=== PATIENT | male | born 1950 | race Caucasian/White ===

== ENCOUNTER → 2023-11-08 14:00 | Outpatient (REF) | payer MEDICARE, SELFPAY | LOC: RAD 14:00 | PROVIDERS: ATTENDING PHYSICIAN Orthopaedic Surgery; FAMILY PHYSICIAN Nurse Practitioner Adult Health | DX: M25.512 Pain in left shoulder (principal) | CPT/HCPCS: 23350; 73040; 73200 ==

== ENCOUNTER 2023-12-01 18:21 | Observation (INO) | payer MEDICARE, SELFPAY ==
[2023-12-01] VITALS (8 sets, daily range): BP systolic 140–181; BP diastolic 94–111; PULSE 80; BMI 30.6
[2023-12-01 15:42] LABS: % Basophils 0.9 % (0-2); % Eosinophils 2.9 % (0-6); % Immature Granulocytes 0.1 % (0-0.5); % Lymphocytes 26.1 % (20.5-51.1); % Monocytes 12.2 % (1.7-9.3); % Neutrophils 57.8 % (42.2-75.2); Absolute Basophils 0.1 10^3/uL (0-0.2); Absolute Eosinophils 0.2 10^3/uL (0-0.7); Absolute Lymphocytes 1.8 10^3/uL (1.2-3.4); Absolute Monocytes 0.8 10^3/uL (0.1-0.6); Absolute Neutrophils 3.9 10^3/uL (1.4-6.5); Hematocrit 36.5 % (39.0-52.0); Hemoglobin 12.6 g/dL (13.0-18.0); Mean Corp Hgb Conc. 34.5 g/dL (33.0-37.0); Mean Corpuscular Hgb 30.7 pg (27.0-31.0); Mean Corpuscular Volume 88.8 fL (80.0-94.0); Mean Platelet Volume 9.7 fL (7.4-10.4); Nucleated Red Blood Cells % 0 % (-); Platelet Count 252 10^3/uL (130-400); Red Blood Cell Count 4.11 10^6/uL (4.70-6.10); Red Cell Dist. Width 13.4 % (11.5-14.5); White Blood Cell Count 6.8 10^3/uL (4.8-10.8)
--- NOTE | 2023-12-01 15:49 | CON.NEURO4 ---
Consultation - Neurology 4
-
CONSULTING PHYSICIAN: Rahul Renteria
REFERRING PHYSICIAN: ER
DICTATED BY: Rahul Renteria
DATE/TIME OF REQUEST: 12/01/23
DATE/TIME OF CONSULTATION: 12/01/23
Reason for Consultation: Sudden onset dizziness, nausea, left arm and neck pain
History of Present Illness:
Patient is a 73 year old man with history of hypertension, COPD, renal mass s/p nephrectomy, GERD, anxiety/depression, ischemic stroke, migraine with complex aura presenting to hospital with acute onset of dizziness, nausea, left arm and neck pain
beginning at around 1030-11 AM today. Patient woke up this morning feeling okay. Symptoms did seem to start suddenly. He feels like he is floating and noted some leaning to the right side. He has been compliant with aspirin. No significant
headache. Has not had the left neck and arm pain before.
Past Medical History: Ischemic stroke in 2015 associated with left-sided weakness and dysarthria/dysphagia no residual deficits, Hypertension, GERD, anxiety/depression, COPD, renal mass s/p nephrectomy, he had event in December 2021 of severe
headache with right sided weakness with negative workup felt to be migraine with motor aura
Surgical History: Left nephrectomy, TURP, hernia repair, finger laceration repair
Family History: Reviewed and non-contributory
Social History: , retired from army, former tobacco use quit at age 31 about 15 pack years, no significant alcohol
Review of Symptoms:
Patient denies any fever, headache, chest pain, shortness of breath, GI or symptoms.
Physical Exam:
Elderly man no acute distress, no head or neck trauma, eyes clear, oropharynx clear, heart rate regular, breathing unlabored, abdomen soft non tender, no lower extremity edema or rash. Good pulses bilaterally, good capillary refill. Neck no pain or
tenderness lissette maneuver negative.
Neurologic Examination:
Mental Status: Patient awake and alert, no neglect, oriented fully, no aphasia, obeys complex commands
Cranial Nerves: Pupils 3mm equal round and reactive, left eye has esotropia and strabismus, EOM are full no pathologic nystagmus seen, smile symmetric, no dysarthria, no ptosis, V1-V3 normal to light touch
Motor: Normal bulk and tone no pronator drift, full 5/5 shoulder abduction and hip flexion
Sensory: No sensory negelct
Reflexes: Trace throughout, no clonus, babinski negative
Coordination: Normal finger to nose and heel elam maneuver
Gait: Milldy wide based, unsteady, no rebeca ataxia, a bit of leaning to right side
Neuro Imaging: CT head non contrast no acute infarcts seen, no hemorrhage, no hyperdense vessel signs
Impressions
1. Sudden onset of dizziness, left neck and arm pain, gait abnormalities. Possibly a cerebellar localization, left neck and arm pain a bit atypical for stroke, prudent to evaluate for carotid or vertebral dissection. Cervical radiculopathy
could explain arm and neck pain but not gait issues or dizziness. History of ischemic stroke. History of complex migraine with motor aura.
2.
3.
4.
Patient has the following risk factors for their symptoms: Hypertension, previous ischemic stroke, migraine
IV Tenecteplase/IAT candidacy: Outside time window for TNK, no large vessel occlusion seen on CTA would not be IAT candidate
Recommendations:
1. Follow up CTA head and neck
2. NIH and neurologic checks
3. Continue aspirin 81 mg daily, add clopidogrel 300 mg for DAPT therapy
4. Permissive hypertension less than 220/120 until tomorrow at 1100 AM
5. Non urgent brain MRI without contrast
6. Check EKG, troponins
Will follow
Discussed patient care with: Patient, Dr Maddox
[2023-12-01 15:53] LABS: INR 1.13; PT 14.4 Sec (11.4-14.6)
[2023-12-01 15:55] LABS: ALT (SGPT) 17 U/L (0-50); AST (SGOT) 28 U/L (17-59); Albumin 4.7 g/dl (3.5-5.0); Alkaline Phosphatase 93 U/L (38-126); Blood Urea Nitrogen 23 mg/dl (9-20); Calcium 9.9 mg/dl (8.4-10.2); Carbon Dioxide 29 mmol/L (22-30); Chloride 100 mmol/L (98-107); Glucose 109 mg/dl (70-99); Potassium 4.5 mmol/L (3.5-5.1); Sodium 136 mmol/L (135-145); Total Bilirubin 0.5 mg/dl (0.2-1.3); Total Protein 7.8 g/dl (6.3-8.2); eGFR > 60.00
[2023-12-01 16:07] LABS: Troponin I < 0.012 ng/ml
[2023-12-01] MEDS: PLAVIX 300 MG PO (16:46)
[2023-12-01] MEDS: ASPIRIN 325 MG PO (16:46)
--- NOTE | 2023-12-01 16:50 | ED.GENMED ---
History of Present Illness
<Karey Bahena PA-C - Last Filed: 12/01/23 17:00>
General
Chief Complaint: Dizziness
Source: patient
Time Seen by Provider: 12/01/23 15:42
History of Present Illness
History of Present Illness:
73yoM with a history of prior CVA, coronary artery disease, hypertension, hyperlipidemia, and COPD presenting for evaluation of dizziness. Patient reports an abrupt onset of symptoms around 10:30-11am this morning. He reports nausea, feeling
flushed, dizzy, with associated L neck and upper arm discomfort. He states it 'feels like he is floating.' Patient reports that he was leaning to his right side and fell into the wall. He also reports feeling his heart race intermittently over the
past several days. He denies any chest pain, shortness of breath, visual changes, headache.
If applicable-neuro sx onset
Onset of symptoms known: Yes
Date of onset of symptoms: 12/01/23
Time pt last seen normal is known: Yes
Date last time pt seen normal: 12/01/23
Time last time pt seen normal: 10:30
Past History
<Karey Bahena PA-C - Last Filed: 12/01/23 17:00>
Past History
ED Past Medical History: GERD, HTN, Hypercholesterolemia and Other (kidney stone)
ED Past Surgical History: Orthopedic and Other (Hernia/eye surgery)
Social History
Tobacco: Former smoker
Alcohol: None
Drug: None
Personal:
Living: with family
Employment: Employed (contractor)
Phy Exam
<Karey Bahena PA-C - Last Filed: 12/01/23 17:00>
General Physical Exam
General Presentation: well appearing and no apparent distress
General age: appears stated age
General Skin: warm and dry
General Habitus: normal
General Mental: alert
Cardiovascular Exam
Cardiovascular Exam: regular rate/rhythm, no edema, no murmur and normal peripheral pulses (2+ radial pulses bilaterally)
Pulmonary Exam
Pulmonary Exam: lungs clear, no respiratory distress and no crackles
Neurological Exam
Neurological Exam: other (Strabismus noted to L eye which is chronic. PERRL. CN 2-12 grossly intact. 5/5 strength and sensation intact in all extremities. No ataxia with finger to nose and heel to elam. Gait is wide based.)
NIH Stroke Score
Level of Consciousness: 0 - Alert
LOC questions: 0-Answers both correctly
LOC Commands: 0-Performs both correctly
Best Gaze: 0-Normal
Visual Patiño: 0=Normal, no visual loss
Facial palsy: 0=Normal, symmetrical
Motor - Right Arm: 0=No drift 10 seconds
Motor - Left Arm: 0=No drift 10 seconds
Motor - Right Le-No drift 5 seconds
Motor - Left Le-No drift 5 seconds
Limb Ataxia: 0-Absent
Sensation: 0-Normal
Best Language: 0-No aphasia
Dysarthria: 0-Normal
Extinction and Inattention: 0-No abnormality
Total Score:: 0
[place] Coma Scale
Eye Opening: Spontaneous
Verbal Response: Oriented
Motor Response: Obeys Commands
GCS Total Score: 15
Skin Exam
Skin Exam: normal color and warm/dry
<Dominick Maddox MD - Last Filed: 12/01/23 17:04>
NIH Stroke Score
Total Score:: 0
[place] Coma Scale
GCS Total Score: 15
Course
<Karey Bahena PA-C - Last Filed: 12/01/23 17:00>
Orders/Labs/Results
Orders:
Orders
12/01/23 15:26
Electrocardiogram (*1) Urgent
Reason for Study: Chest Pain
EKG- Treatment ONCE
12/01/23 15:28
CT Head W/o Cont STROKE ALERT Urgent
Reason For Exam: dizziness, gait dysfunction starting 11am
12/01/23 15:34
Complete Blood Count/With Diff Urgent
Comprehensive Metabolic Panel Urgent
Prothrombin Time Urgent
Troponin I Urgent
12/01/23 15:48
CT Head/Neck Ang STROKE ALERT Stat
Comment:
Reason For Exam: Dissection?
12/01/23 16:33
Aspirin 325 mg PO NOW STA
Clopidogrel Bisulfate [Plavix] 300 mg PO NOW STA
12/01/23 16:49
Urinalysis Reflex To Culture Urgent
Date Specimen was Collected: 12/01/23
Time Specimen was Collected: 16:48
Urine Microscopic Reflex Cult Urgent
Abnormal Lab Results
12/01/23 12/01/23
15:34 16:49
RBC 4.11 L 10^6/uL
(4.70-6.10)
Hgb 12.6 L g/dL
(13.0-18.0)
Hct 36.5 L %
(39.0-52.0)
Absolute Monos (auto) 0.8 H 10^3/uL
(0.1-0.6)
Monocytes % 12.2 H %
(1.7-9.3)
BUN 23 H mg/dl
(9-20)
Glucose 109 H mg/dl
(70-99)
Ur Occult Blood Reflex Trace A
(Negative)
12/01/23 15:34
12/01/23 15:34
Vital Signs
Initial and Last Documented VS:
Initial Vital Signs
Temp Pulse Resp BP Pulse Ox
99.1 F 100 18 166/111 97
12/01/23 15:22 12/01/23 15:22 12/01/23 15:22 12/01/23 15:22 12/01/23 15:22
Last Documented Vital Signs
Temp Pulse Resp BP Pulse Ox
99.1 F 86 12 168/102 96
12/01/23 15:22 12/01/23 16:30 12/01/23 16:30 12/01/23 16:46 12/01/23 16:30
<Dominick Maddox MD - Last Filed: 12/01/23 17:04>
Orders/Labs/Results
Orders:
Orders
12/01/23 15:26
Electrocardiogram (*1) Urgent
Reason for Study: Chest Pain
EKG- Treatment ONCE
12/01/23 15:28
CT Head W/o Cont STROKE ALERT Urgent
Reason For Exam: dizziness, gait dysfunction starting 11am
12/01/23 15:34
Complete Blood Count/With Diff Urgent
Comprehensive Metabolic Panel Urgent
Prothrombin Time Urgent
Troponin I Urgent
12/01/23 15:48
CT Head/Neck Ang STROKE ALERT Stat
Comment:
Reason For Exam: Dissection?
12/01/23 16:33
Aspirin 325 mg PO NOW STA
Clopidogrel Bisulfate [Plavix] 300 mg PO NOW STA
12/01/23 16:49
Urinalysis Reflex To Culture Urgent
Date Specimen was Collected: 12/01/23
Time Specimen was Collected: 16:48
Urine Microscopic Reflex Cult Urgent
Abnormal Lab Results
12/01/23 12/01/23
15:34 16:49
RBC 4.11 L 10^6/uL
(4.70-6.10)
Hgb 12.6 L g/dL
(13.0-18.0)
Hct 36.5 L %
(39.0-52.0)
Absolute Monos (auto) 0.8 H 10^3/uL
(0.1-0.6)
Monocytes % 12.2 H %
(1.7-9.3)
BUN 23 H mg/dl
(9-20)
Glucose 109 H mg/dl
(70-99)
Ur Occult Blood Reflex Trace A
(Negative)
12/01/23 15:34
12/01/23 15:34
Vital Signs
Initial and Last Documented VS:
Initial Vital Signs
Temp Pulse Resp BP Pulse Ox
99.1 F 100 18 166/111 97
12/01/23 15:22 12/01/23 15:22 12/01/23 15:22 12/01/23 15:22 12/01/23 15:22
Last Documented Vital Signs
Temp Pulse Resp BP Pulse Ox
99.1 F 86 12 168/102 96
12/01/23 15:22 12/01/23 16:30 12/01/23 16:30 12/01/23 16:46 12/01/23 16:30
<Karey Bahena PA-C - Last Filed: 12/01/23 17:00>
MDM/Problems Addressed
Differential Diagnosis Includes:
73yoM here with an acute onset of dizziness, nausea, L arm/neck pain around 10:30-11am this morning. Associated with gait disturbance. Stroke alert called in triage and patient sent directly to CT. Neurology attending came to bedside an assessed
patient. L eye strabismus noted which is chronic. Gait is wide based. No other obvious deficits noted on neuro exam. NIHSS 0. Differential diagnosis includes but is not limited to: CVA, TIA, complex migraine, ACS, less likely aortic dissection as
pulses and BP are equal bilaterally
<Karey Bahena PA-C - Last Filed: 12/01/23 17:00>
*EKG
Interpreted by ED Provider?: Yes
EKG Intrepretation Date: 12/01/23
Heart Rate: 94
Rate: normal
Rhythm: sinus
Burton: left axis deviation
Interval: normal interval
QRS Pattern: normal QRS
Ischemia: no ischemia
*Critical Care Note
Total Time (30-74mins, 75-104mins- exclusive of procedures): Not Applicable
<Karey Bahena PA-C - Last Filed: 12/01/23 17:00>
Update Note
Update Note:
EKG shows NSR without ischemic changes and troponin is normal. CT head is negative for hemorrhage and no large vessel occlusion seen on CTA. Neurology recommending Plavix load and admission for MRI. He was admitted for further evaluation and
management.
ED Attending Note
<Karey Bahena PA-C - Last Filed: 12/01/23 17:00>
-
Portions of this chart may have been created with voice recognition software.� Occasional wrong word or��sound alike� substitutions may have occurred due to the inherent limitations of voice recognition software.
<Dominick Maddox MD - Last Filed: 12/01/23 17:04>
ED Attending Note
Patient seen and examined by attending physician: Yes
I performed the substantive portion of visit, reviewed & personally made and approve the management plan that is documented in note by myself or MATT.: Yes
ED Attending Note:
Patient with onset of some disequilibrium left upper posterior neck pain left arm pain and a foggy feeling around 11 AM this morning. Persistent throughout the day. No history of same.
Stroke alert was called at triage. Exam was done neurologically observing the neurologist. Patient has a left eye strabismus. Extraocular muscles intact otherwise. No facial droop. Speech normal. Gait is mildly wide-based. No drift.
Vmipsj-km-[id number] normal. Bbjc-lc-vpce normal. Light touch intact. No extinction.
CT head CTA negative. Cardiac testing stable. Discussed with neurology. Admit aspirin Plavix and MRI tomorrow
Discharge Plan
Departure
Patient Disposition: Admit
Date of Disposition: 12/01/23
Time of Disposition: 16:51
Presentation/result/management discussed w/ accepting MD/DO: Hospitalist
Discharge Problem:
Dizziness, Neck pain on left side
Prescriptions:
No Action
lansoprazole 30 MG capsule,delayed release(DR/EC)
30 mg PO BID
losartan 50 MG tablet
50 mg PO HS
atorvastatin 80 MG tablet
80 mg PO HS
venlafaxine [Effexor XR] 75 MG capsule,extended release 24hr
225 mg PO DAILY
albuterol sulfate 1 PUFF HFA aerosol inhaler
2 puff inhalation R Q4HPRN PRN (Reason: sob/wheezing)
cyclobenzaprine 10 mg Tablet
10 mg PO DAILYPRN PRN (Reason: muscle spasms)
melatonin 3 mg Tablet
9 mg PO HS
amlodipine 5 mg Tablet
5 mg PO HS
buspirone 15 mg Tablet
30 mg PO BID
aspirin 81 mg Tablet,Chewable
81 mg PO DAILY Qty: 30 0RF
cyanocobalamin (vitamin B-12) [Vitamin B-12] 1,000 mcg Tablet
1,000 mcg PO DAILY
oxycodone-acetaminophen 10-325 mg tablet
1 tab PO Q6HPRN PRN (Reason: moderate pain)
Patient Comments:
12/07/2023: last filled 11/21/23, 120 tabs for 30 days from [facility]
tadalafil 20 mg tablet
20 mg PO DAILYPRN PRN (Reason: ed)
Referrals:
Nusrat Medrano CRNP [Family Provider] -
Interventions
Interventions:
*Risk Screen - Suicide Last Done: 12/01/23 15:22
*General Assessment Last Done: 12/01/23 15:22
*Neglect/Abuse Screening Last Done: 12/01/23 15:22
*ED COVID-19 Vaccine History Last Done: 08/02/24 16:11
ED- Neurological Assessment Last Done: 12/01/23 16:11
ED Swallowing Screen Last Done: 12/01/23 16:11
Discharge Date and Time
Print Language: SPANISH
[2023-12-01 16:59] LABS: Urine Albumin Negative (Neg - Trace); Urine Bilirubin Negative (Negative); Urine Character Clear (Clear); Urine Color Yellow; Urine Glucose Negative (Negative); Urine Ketone Negative (Negative); Urine Leukocyte Negative (Negative); Urine Nitrite Negative (Negative); Urine Occult Blood Trace (Negative); Urine Specific Gravity 1.015 (<1.030); Urine Urobilinogen Negative (Neg - 1+)
[2023-12-01 17:19] LABS: Urine White Cell 0-2 /HPF (0-5)
--- NOTE | 2023-12-01 17:50 | HPS.HSE ---
Family Physician
-
Family Physician: JONATHAN Bob
Chief Complaint
-
dizziness
History of Present Illness
73-year-old male past medical history of CVA in 2018, migraine, COPD, hypertension, kidney stones status post left partial nephrectomy in 2022, hyperlipidemia, posttraumatic stress disorder, chronic severe lower back pain, anemia, presenting with
dizziness. He reports abrupt onset of symptoms around 10:30 AM's morning. He felt nauseous, feeling flushed, dizzy with associated left neck and left upper arm discomfort. He was leaning onto his right side and fell into the wall. He also felt
heart racing intermittently over the past several days. He denied any chest pain, shortness of breath, visual changes, headache.
Right now he complains of pain in his left neck and left upper arm. He has posterior headache. He denies any chest pain or shortness of breath. He states that he chronically leans onto his right side was told by a neurologist few years ago that
he may have had a migraine. He denies any history of heart disease.
He denies smoking. Drinks alcohol occasionally. He denies marijuana or any drugs.
Medical History
Past Medical History
Past Medical History: Reports Other (CVA in 2018, migraine, COPD, hypertension, kidney stones status post left partial nephrectomy in 2022, hyperlipidemia, posttraumatic stress disorder, chronic severe lower back pain, anemia,)
Past Surgical History: Reports Other ( Orthopedic and Other (Hernia/eye surgery))
Social History
Tobacco: Non-smoker
Alcohol: Occasional
Drug: None
Family History
Family History: Not pertinent
Allergies / Home Medications
Allergies reflects when Allergies were last updated in [employer].
Home Medications with original date entered in [employer]
Allergy/Medication List:
Allergies
Allergy/AdvReac Type Severity Reaction Status Date / Time
Penicillins Allergy Hives/throat Verified 10/21/22 15:41
restriction
@age 13
Home Medications
albuterol sulfate 90 mcg/actuation aerosol inhaler 2 puff inhalation R Q4HPRN PRN sob/wheezing 10/19/20
atorvastatin 80 mg tablet 80 mg PO HS High cholesterol 10/19/20
lansoprazole 30 mg capsule,delayed release 30 mg PO BID Gastrointestinal issue 10/19/20
losartan 50 mg tablet 50 mg PO HS Blood pressure 10/19/20
venlafaxine 75 mg capsule,extended release 24 hr (Effexor XR) 225 mg PO DAILY Depression 10/19/20
amlodipine 5 mg tablet 5 mg PO HS 01/17/22
buspirone 15 mg tablet 30 mg PO BID 01/17/22
cyclobenzaprine 10 mg tablet 10 mg PO DAILYPRN PRN muscle spasms 01/17/22
melatonin 3 mg tablet 9 mg PO HS 01/17/22
aspirin 81 mg chewable tablet 81 mg PO DAILY Blood clot prevention/tx #30 tabs 01/19/22
cyanocobalamin (vitamin B-12) 1,000 mcg tablet (Vitamin B-12) 1,000 mcg PO DAILY 10/21/22
oxycodone-acetaminophen 10 mg-325 mg tablet 1 tab PO Q6HPRN PRN moderate pain 10/21/22
tadalafil 20 mg tablet 20 mg PO DAILYPRN PRN ed 10/21/22
Review of Systems
-
History Source: Patient
A 12 point ROS was completed and negative except as noted: Yes
Constitutional: Reports No Symptoms
EENT: Reports No Symptoms
Respiratory: Reports No Symptoms
Cardiac: Reports No Symptoms
Abdomen/GI: Reports No Symptoms
: Reports No Symptoms
Musculoskeletal: Reports No Symptoms
Skin: Reports No Symptoms
Neurological: Reports See HPI
Endocrine: Reports No Symptoms
Hematologic/Lymphatic: Reports No Symptoms
Psych: Reports No Symptoms
Physical Exam
Vital Signs
Vital Signs
Temp Pulse Resp BP Pulse Ox
99.1 F 86 16 168/102 96
12/01/23 15:22 12/01/23 16:30 12/01/23 17:00 12/01/23 16:46 12/01/23 16:30
Physical Exam
General: Well Developed, Well Nourished and No Apparent Distress
HEENT: NormoCephalic, Moist mucous membranes and Atraumatic
Respiratory: Clear
Cardiac: S1/S2 and Regular Rhythm; No Murmur or Rub
GI: Soft, Non Tender, Non Distended and Normal Bowel Sounds; No Organomegaly
Rectal: Deferred by Provider
Musculoskeletal: No Clubbing, No Cyanosis and No Edema
Skin: No Rash
Neuro: Nonfocal/grossly intact
Laboratory Results
-
12/01/23 15:34
12/01/23 15:34
Laboratory Results
PT 14.4 Sec (11.4-14.6) 12/01/23 15:34
INR 1.13 12/01/23 15:34
Total Bilirubin 0.5 mg/dl (0.2-1.3) 12/01/23 15:34
AST 28 U/L (17-59) 12/01/23 15:34
ALT 17 U/L (0-50) 12/01/23 15:34
Alkaline Phosphatase 93 U/L (38-126) 12/01/23 15:34
Troponin I < 0.012 ng/ml 12/01/23 15:34
Data Reviewed
-
Lab Data: Labs Reviewed by me
Old Records: Reviewed
Impression/Plan
-
IMPRESSION:
PLAN:
# Dizziness/left arm and neck pain suspicious for ACS versus CVA versus cervical stenosis
# History of prior CVA
-CTA head and neck shows no acute pathology, less than 50% proximal right internal carotid stenosis which is progressed
-No evidence of vertebral artery dissection
-Continue aspirin, add Plavix
-Permissive hypertension to 220
-Neurochecks/NIH checks
-MRI brain without contrast
-EKG normal sinus rhythm, troponin negative, continue to trend
-Neurology following
# Incidental soft tissue filling of the left piriform sinus
-Stable from prior imaging
History of migraine
COPD
-Continue albuterol
Essential hypertension
-Continue amlodipine, losartan
Kidney stone status post left partial nephrectomy
Hyperlipidemia
PTSD
-Continue buspirone, venlafaxine
Chronic severe lower back pain
-Continue cyclobenzaprine, Percocet
History of cervical fusion
History of anemia
-Improved
Full code
DVT prophylaxis�SCDs
Regular diet
[2023-12-01 19:56] LABS: Troponin I < 0.012 ng/ml
[2023-12-01] MEDS: PROTONIX 40 MG PO (20:37)
--- NOTE | 2023-12-01 20:45 | PTCARENOTE ---
Receive pt from ER. Pt alert oriented X3, calm and pleasant. Pt assisted X1 to his bed. Pt oriented to the room, call hoang within reach. Pt complains about dizziness when turning his head. Pt states that he feels like 'things are floating', but the
room is not spinning. Pt also complains about left neck pain (4/10) and chronic lower back pain (5/10). Pt denies chest pain, SOB. Pt NIH=0, stroke pocket given. VSS (T=97.8, HR=84, RR=18, XG=992/97, SpO2=94% on RA). Pt on NSR on telemonitor. Will
monitor the pt
[2023-12-01] MEDS: BUSPAR 30 MG PO (22:33)
[2023-12-01] MEDS: MELATONIN 9 MG PO (22:34)
[2023-12-01] MEDS: NORVASC 5 MG PO (22:34)
[2023-12-01] MEDS: LIPITOR 80 MG PO (22:34)
[2023-12-01] MEDS: ROXICODONE 10 MG PO (22:35)
[2023-12-01] MEDS: COZAAR 50 MG PO (22:35)
--- NOTE | 2023-12-01 23:06 | W.PN.UPDATE ---
Update Note
Progress Note Update
Per RN, patient passed swallow screen, will place on Regular diet.
[2023-12-02] VITALS (8 sets, daily range): BP systolic 106–146; BP diastolic 65–87; PULSE 81
[2023-12-02] MEDS: VITAMIN B-12 1000 MCG PO (08:37)
[2023-12-02] MEDS: EFFEXOR XR 225 MG PO (08:37)
[2023-12-02] MEDS: PLAVIX 75 MG PO (08:37)
[2023-12-02] MEDS: PROTONIX 40 MG PO ×2 (08:37→20:48)
[2023-12-02] MEDS: LOW STRENGTH ASPIRIN 81 MG PO (08:37)
[2023-12-02] MEDS: BUSPAR 30 MG PO ×2 (08:37→20:48)
--- NOTE | 2023-12-02 08:42 | W.PN.NEURO.1 ---
Today's Communication / Plan
-
Continue aspirin 81 mg daily, added clopidogrel 300 mg for DAPT therapy, after 21 days, then clopidogrel alone as permanent aspirin replacement
Permissive hypertension less than 220/120 until today at 1100 AM, then normal pressure
Continue patient's usual atorvastatin 80 mg daily
Neuro Assessment/Plan
Assessment
Neuro Imaging: CT head non contrast no acute infarcts seen, no hemorrhage, no hyperdense vessel signs
Impressions
Sudden onset of dizziness, left neck and arm pain, gait abnormalities. History of ischemic stroke. History of complex migraine with motor aura.
Possibly a cerebellar localization for acute ischemic stroke, left neck and arm pain a bit atypical for stroke
Cervical radiculopathy could explain arm and neck pain but not gait issues or dizziness.
MRI of brain fails to demonstrate a new acute ischemic stroke as the cause for symptomatology leaving more likely TIA.
Plan
Continue aspirin 81 mg daily, added clopidogrel 300 mg for DAPT therapy, after 21 days, then clopidogrel alone as permanent aspirin replacement
Permissive hypertension less than 220/120 until today at 1100 AM, then normal pressure
Continue patient's usual atorvastatin 80 mg daily
We will follow as outpatient.
Subjective/Objective
Subjective Data
Date of Service: December 02, 2023
Objective Data
Vital Signs
Temp Pulse Resp BP Pulse Ox
36.8 C 82 18 112/79 97
12/02/23 03:45 12/02/23 03:45 12/02/23 03:45 12/02/23 03:45 12/02/23 03:45
PT 14.4 Sec (11.4-14.6) 12/01/23 15:34
INR 1.13 12/01/23 15:34
Sodium 136 mmol/L (135-145) 12/01/23 15:34
Potassium 4.5 mmol/L (3.5-5.1) 12/01/23 15:34
BUN 23 mg/dl (9-20) H 12/01/23 15:34
Glucose 109 mg/dl (70-99) H 12/01/23 15:34
Calcium 9.9 mg/dl (8.4-10.2) 12/01/23 15:34
Patient Allergies
Penicillins Allergy (Verified 10/21/22 15:41)
Hives/throat restriction @age 13
Data Reviewed
-
CT-A: Report Reviewed
CT Head: Report Reviewed
MRI Head: Image Reviewed
Labs: Report Reviewed
Reviewed with: Physician
Old Records: Summarized
Past History
Past History
ED Past Medical History: CVA (Ischemic stroke 2016 with left-sided weakness), GERD, HTN, Hypercholesterolemia, Psychiatric (Generalized anxiety disorder/major depression), Other (Migraine with aura) and Other (kidney stone)
ED Past Surgical History: Orthopedic, Urological (Left nephrectomy, TURP) and Other (Hernia/eye surgery)
Social History
Tobacco: Former smoker
Alcohol: None
Drug: None
Personal:
Living: with family
Employment: Employed (contractor)
Family History
Family History: Other (Reviewed and noncontributory)
Medications
-
Medications:
Generic Name Dose Route Start Last Admin
Trade Name Freq PRN Reason Stop Dose Admin
Acetaminophen 325 mg 12/01/23 20:21
Acetaminophen 325 Mg Tablet PO 12/29/23 20:20
Q6HPRN PRN
MODERATE PAIN
Albuterol 2 puff 12/01/23 19:14
Albuterol Hfa [90 Mcg/Dose] Inhaler INH
R Q4HPRN PRN
sob/wheezing
Protocol
Amlodipine Besylate 5 mg 12/01/23 22:00 12/01/23 22:34
Amlodipine 5 Mg Tablet PO 12/29/23 21:59 5 mg
HS DEVORAH Administration
Aspirin 81 mg 12/02/23 08:00
Aspirin 81 Mg Chewable Tablet PO 12/30/23 07:59
DAILY DEVORAH
Atorvastatin Calcium 80 mg 12/01/23 22:00 12/01/23 22:34
Atorvastatin (Lipitor) 80 Mg Tablet PO 12/29/23 21:59 80 mg
HS DEVORAH Administration
Buspirone HCl 30 mg 12/01/23 20:00 12/01/23 22:33
Buspirone 15 Mg Tablet PO 12/29/23 19:59 30 mg
BID DEVORAH Administration
Clopidogrel Bisulfate 75 mg 12/02/23 08:00
Clopidogrel 75 Mg Tablet PO 12/30/23 07:59
DAILY DEVORAH
Cyanocobalamin 1,000 mcg 12/02/23 08:00
Cyanocobalamin 1,000 Mcg Tablet PO 12/30/23 07:59
DAILY DEOVRAH
Cyclobenzaprine HCl 10 mg 12/01/23 19:14
Cyclobenzaprine 10 Mg Tablet PO 12/29/23 19:13
DAILYPRN PRN
muscle spasms
Losartan Potassium 50 mg 12/01/23 22:00 12/01/23 22:35
Losartan 50 Mg Tablet PO 12/29/23 21:59 50 mg
HS DEVORAH Administration
Melatonin 9 mg 12/01/23 22:00 12/01/23 22:34
Melatonin 3 Mg Tablet PO 12/29/23 21:59 9 mg
HS DEVORAH Administration
Oxycodone HCl 10 mg 12/01/23 20:15 12/01/23 22:35
Oxycodone 10 Mg Regular Release Tablet PO 12/15/23 20:14 10 mg
Q6HPRN PRN Administration
moderate pain
Pantoprazole Sodium 40 mg 12/01/23 20:00 12/01/23 20:37
Pantoprazole 40 Mg Delayed Release Tablet PO 12/29/23 19:59 40 mg
BID DEVORAH Administration
Venlafaxine HCl 225 mg 12/02/23 08:00
Venlafaxine 75 Mg Extended Release Capsule PO 12/30/23 07:59
DAILY DEVORAH
--- NOTE | 2023-12-02 08:51 | W.PN.HOSP.TC ---
Today's Communication/Plan
-
MRI of the brain.
Assessment / Plan
Assessment / Plan
Physical exam:
General: Well Developed, Well Nourished and No Apparent Distress
HEENT: Normocephalic, Atraumatic and Moist Mucous Membranes
Respiratory: Clear to Auscultation; Negative Wheezes, Rales or Rhonchi
Cardiac: Regular Rhythm and S1/S2
GI: Soft, Nontender and Nondistended
Musculoskeletal: No Clubbing, No Cyanosis and No Edema
Neuro: Awake, Alert and Oriented
Psych: Calm
A/P:
# Dizziness/left arm and neck pain suspicious for ACS versus CVA versus cervical stenosis
# History of prior CVA
-CTA head and neck shows no acute pathology, less than 50% proximal right internal carotid stenosis which is progressed
-No evidence of vertebral artery dissection
-Continue aspirin, add Plavix
-Permissive hypertension to 220
-Neurochecks/NIH checks
-MRI brain without contrast
-EKG normal sinus rhythm, troponin negative, continue to trend
-Neurology following
-Patient requests something for claustrophobia prior to MRI so ordered some Ativan.
# Incidental soft tissue filling of the left piriform sinus
-Stable from prior imaging
History of migraine
COPD
-Continue albuterol
Essential hypertension
-Continue amlodipine, losartan
Kidney stone status post left partial nephrectomy
Hyperlipidemia
PTSD
-Continue buspirone, venlafaxine
Chronic severe lower back pain
-Continue cyclobenzaprine, Percocet
History of cervical fusion
History of anemia
-Improved
Full code
DVT prophylaxis�SCDs
Regular diet
Anticipated Discharge: 24 - 48 hours
Subjective/Interval History
-
Date of Service: December 02, 2023
Patient feels better overall, still having some dizziness.
Objective Data
-
Labs:
Laboratory Results
12/02/23
07:55
WBC Pending
Hgb Pending
Hct Pending
Plt Count Pending
Sodium Pending
Potassium Pending
Chloride Pending
Carbon Dioxide Pending
BUN Pending
Creatinine Pending
Glucose Pending
Calcium Pending
Vital Signs:
Vital Signs
Temp Pulse Resp BP Pulse Ox
98.2 F 82 18 112/79 97
12/02/23 03:45 12/02/23 03:45 12/02/23 03:45 12/02/23 03:45 12/02/23 03:45
I&O
12/01/23 12/02/23 12/03/23
06:59 06:59 06:59
Intake Total 960 / 960
Output Total 700 / 700
Balance 260 / 260
[2023-12-02 08:59] LABS: Blood Urea Nitrogen 17 mg/dl (9-20); Calcium 9.6 mg/dl (8.4-10.2); Carbon Dioxide 28 mmol/L (22-30); Chloride 99 mmol/L (98-107); Estimated Creatinine Clearance 71 ml/min; Glucose 100 mg/dl (70-99); HDL Cholesterol 48 mg/dl; LDL Cholesterol, Calculated 81 mg/dl; Potassium 3.9 mmol/L (3.5-5.1); Sodium 135 mmol/L (135-145); Total Cholesterol 149 mg/dl (50-199); Triglyceride 104 mg/dl (10-149); Very Low Density Lipoprotein 20 mg/dl (0-30); eGFR > 60.00
[2023-12-02] MEDS: ProAIR HFA INHALER 2 PUFF INH (09:05)
[2023-12-02 09:20] LABS: Troponin I < 0.012 ng/ml
[2023-12-02 09:38] LABS: Hematocrit 34.1 % (39.0-52.0); Hemoglobin 11.8 g/dL (13.0-18.0); Mean Corp Hgb Conc. 34.6 g/dL (33.0-37.0); Mean Corpuscular Hgb 30.4 pg (27.0-31.0); Mean Corpuscular Volume 87.9 fL (80.0-94.0); Mean Platelet Volume 10.1 fL (7.4-10.4); Platelet Count 254 10^3/uL (130-400); Red Blood Cell Count 3.88 10^6/uL (4.70-6.10); Red Cell Dist. Width 13.6 % (11.5-14.5); White Blood Cell Count 4.9 10^3/uL (4.8-10.8)
[2023-12-02] MEDS: ROXICODONE 10 MG PO ×2 (10:17→18:29)
[2023-12-02] MEDS: ATIVAN 1 MG IV (12:30)
[2023-12-02] MEDS: NSS (PRESERVATIVE FREE) 0.5 ML IV (12:30)
[2023-12-02] MEDS: MIRALAX 17 GRAMS PO (13:52)
[2023-12-02] MEDS: COLACE 100 MG PO ×2 (13:52→20:48)
[2023-12-02 14:22] LABS: Troponin I < 0.012 ng/ml
[2023-12-02] MEDS: FLEXERIL 10 MG PO (15:17)
[2023-12-02 20:05] LABS: Troponin I < 0.012 ng/ml
[2023-12-02] MEDS: COZAAR 50 MG PO (21:07)
[2023-12-02] MEDS: LIPITOR 80 MG PO (21:08)
[2023-12-02] MEDS: NORVASC 5 MG PO (21:08)
[2023-12-02] MEDS: MELATONIN 9 MG PO (21:08)
[2023-12-02] MEDS: TYLENOL 650 MG PO (22:55)
[2023-12-03] MEDS: ROXICODONE 10 MG PO ×2 (01:14→08:31)
[2023-12-03 03:55] VITALS: BP 123/81
[2023-12-03 07:55] VITALS: BP 132/86
[2023-12-03] MEDS: VITAMIN B-12 1000 MCG PO (08:26)
[2023-12-03] MEDS: LOW STRENGTH ASPIRIN 81 MG PO (08:26)
[2023-12-03] MEDS: COLACE 100 MG PO (08:26)
[2023-12-03] MEDS: EFFEXOR XR 225 MG PO (08:26)
[2023-12-03] MEDS: PROTONIX 40 MG PO (08:26)
[2023-12-03] MEDS: PLAVIX 75 MG PO (08:26)
[2023-12-03] MEDS: BUSPAR 30 MG PO (08:27)
[2023-12-03] MEDS: MIRALAX 17 GRAMS PO (08:27)
--- NOTE | 2023-12-03 09:22 | W.PN.HOSP.TC ---
Today's Communication/Plan
-
Discharge planning
Assessment / Plan
Assessment / Plan
Physical exam:
General: Well Developed, Well Nourished and No Apparent Distress
HEENT: Normocephalic, Atraumatic and Moist Mucous Membranes
Respiratory: Clear to Auscultation; Negative Wheezes, Rales or Rhonchi
Cardiac: Regular Rhythm and S1/S2
GI: Soft, Nontender and Nondistended
Musculoskeletal: No Clubbing, No Cyanosis and No Edema
Neuro: Awake, Alert and Oriented
Psych: Calm
A/P:
# Dizziness/left arm and neck pain suspicious for ACS versus CVA versus cervical stenosis
# History of prior CVA
Discussed with neurology who feels this was related to TIA.
Recommended dual antiplatelet therapy and statins. Neurology cleared him for discharge.
Looks like possible hearing loss contributing to his presentation so recommended to avoid excessive heat and strenuous activities.
Prior to today:
-CTA head and neck shows no acute pathology, less than 50% proximal right internal carotid stenosis which is progressed
-No evidence of vertebral artery dissection
-Continue aspirin, add Plavix
-Permissive hypertension to 220
-Neurochecks/NIH checks
-MRI brain without contrast
-EKG normal sinus rhythm, troponin negative, continue to trend
-Neurology following
-Patient requests something for claustrophobia prior to MRI so ordered some Ativan.
# Incidental soft tissue filling of the left piriform sinus
-Stable from prior imaging
History of migraine
COPD
-Continue albuterol
Essential hypertension
-Continue amlodipine, losartan
Kidney stone status post left partial nephrectomy
Hyperlipidemia
PTSD
-Continue buspirone, venlafaxine
Chronic severe lower back pain
-Continue cyclobenzaprine, Percocet
History of cervical fusion
History of anemia
-Improved
Full code
DVT prophylaxis�SCDs
Regular diet
Anticipated Discharge: Today
Subjective/Interval History
-
Date of Service: December 03, 2023
No new complaint
Objective Data
-
Vital Signs:
Vital Signs
Temp Pulse Resp BP Pulse Ox
97.7 F 83 20 132/86 97
12/03/23 07:55 12/03/23 07:55 12/03/23 07:55 12/03/23 07:55 12/03/23 08:20
I&O
12/02/23 12/03/23 12/04/23
06:59 06:59 06:59
Intake Total 1560 / 1560
Output Total 1675 / 1675
Balance -115 / -115
[2023-12-03 11:20] VITALS: BP 123/91
[2023-12-03] MEDS: FLEXERIL 10 MG PO (11:56)
--- NOTE | 2023-12-03 13:23 | CM ---
Met with [facility] in his room. He lives in an in-law suite off of their son's home. It is one floor and no steps. Patient is independent at baseline with ADLs and ambulation. He has a cane which he has not been using recently as well as grab bars
in bathroom.
Patient uses [facility] (Tanvi Sahu). He sees JONATHAN Mandujano at [facility]. Hx of [facility] (now [facility]).
Pt feels capable of returning home with no needs. His S.O. will pick him up today.
Plan: Discharge to home with no needs
--- NOTE | 2023-12-03 15:56 | W.DCSUMMARY ---
Discharge Summary
Discharge Data
Date of Admission: 12/01/23
Date of Discharge: 12/03/23
-
Pending Results: No
Hospital Course
Patient 73 years old male with history of hypertension, COPD, renal mass status post nephrectomy in the past, GERD, depression anxiety ischemic stroke, migraine with complex aura, presented to the hospital sudden onset of dizziness nausea left arm
and neck pain. Patient underwent stroke workup and MRI of the brain unremarkable as well as the rest of the workup. CTA of the head and neck with some abnormalities but nothing that requires urgent intervention. Neurology was on consult.
Neurology felt that this was related to TIA and recommended dual antiplatelet therapy for 3-week and afterwards continue with baby aspirin and statins. Also there was an element of heating exhaustion since patient had some remodeling at home so
recommended against heating environment. Patient otherwise have improved and feels close to his baseline. He will be discharged in stable condition today.
Discharge duration: 35 minutes
Discharge Plan
-
Patient Disposition: Home (Routine Discharge)
Discharge Diagnosis/Procedures: Transient ischemic attack.
Diet: Low Cholesterol
Activity: As tolerated
Additional Activity: Avoid excessive heating.
Blood Work: Please PCP to order CBC, BMP within 1 week
Referrals:
Nusrat Medrano CRNP [Family Provider] - in less than 1 week
Keon Gutierrez MD [Active] - in two to four weeks
Prescriptions:
New
clopidogrel 75 mg Tablet
75 mg PO DAILY 21 Days Qty: 21 0RF
Continued
lansoprazole 30 MG capsule,delayed release(DR/EC)
30 mg PO BID
losartan 50 MG tablet
50 mg PO HS
atorvastatin 80 MG tablet
80 mg PO HS
venlafaxine [Effexor XR] 75 MG capsule,extended release 24hr
225 mg PO DAILY
albuterol sulfate 1 PUFF HFA aerosol inhaler
2 puff inhalation R Q4HPRN PRN (Reason: sob/wheezing)
cyclobenzaprine 10 mg Tablet
10 mg PO DAILYPRN PRN (Reason: muscle spasms)
melatonin 3 mg Tablet
9 mg PO HS
amlodipine 5 mg Tablet
5 mg PO HS
buspirone 15 mg Tablet
30 mg PO BID
aspirin 81 mg Tablet,Chewable
81 mg PO DAILY Qty: 30 0RF
cyanocobalamin (vitamin B-12) [Vitamin B-12] 1,000 mcg Tablet
1,000 mcg PO DAILY
oxycodone-acetaminophen 10-325 mg tablet
1 tab PO Q6HPRN PRN (Reason: moderate pain)
Patient Comments:
12/07/2023: last filled 11/21/23, 120 tabs for 30 days from [facility]
tadalafil 20 mg tablet
20 mg PO DAILYPRN PRN (Reason: ed)
Discharge Orders:
Discharge Patient (As Directed); Ordered 12/03/23
Ordered By: Thomas Patino
Discharge Date and Time
Discharge Date/Time: 12/03/23 14:27
Print Language: AZERBAIJANI
[2023-12-04 20:33] LABS: Hepatitis C Antibody Negative (Negative)
== END 2023-12-03 14:27 | disposition home or self-care (01) ==
LOC: 4 EAST ACU 18:21
PROVIDERS: ADMITTING PHYSICIAN Hospitalist; ATTENDING PHYSICIAN Hospitalist; EMERGENCY PHYSICIAN Emergency Medicine; FAMILY PHYSICIAN Nurse Practitioner Adult Health; OTHER PHYSICIAN Student in an Organized Health Care Education/Training Program
DX: G45.9 Transient cerebral ischemic attack, unspecified (principal); R42 Dizziness and giddiness; M54.2 Cervicalgia; R23.2 Flushing; M79.602 Pain in left arm; R11.0 Nausea; R07.9 Chest pain, unspecified; R00.0 Tachycardia, unspecified; M54.50 Low back pain, unspecified; I67.82 Cerebral ischemia; F32.A Depression, unspecified; F41.9 Anxiety disorder, unspecified; M79.622 Pain in left upper arm; R26.9 Unspecified abnormalities of gait and mobility; F43.10 Post-traumatic stress disorder, unspecified; K21.9 Gastro-esophageal reflux disease without esophagitis; I25.10 Atherosclerotic heart disease of native coronary artery without angina pectoris; I10 Essential (primary) hypertension; J44.9 Chronic obstructive pulmonary disease, unspecified; E78.00 Pure hypercholesterolemia, unspecified; W19.XXXA Unspecified fall, initial encounter; Y93.9 Activity, unspecified; Y92.9 Unspecified place or not applicable; Z87.442 Personal history of urinary calculi; Z87.891 Personal history of nicotine dependence; Z86.73 Personal history of transient ischemic attack (TIA), and cerebral infarction without residual deficits; Z79.82 Long term (current) use of aspirin; Z90.5 Acquired absence of kidney; Z88.0 Allergy status to penicillin
CPT/HCPCS: 70450; 70496; 70498; 70551; 80048; 80053; 80061; 81003; 81015; 84484; 85025; 85027; 85610; 86803; 93005; 94640; 94660; 99285; G0378; Q9967

== ENCOUNTER 2024-02-04 13:57 | Emergency (ER) | payer MEDICARE, SELFPAY ==
[2024-02-04 14:01] VITALS: BP 167/98
[2024-02-04 15:11] VITALS: BMI 30.8
[2024-02-04] MEDS: ZOFRAN ODT (ORALLY DISINTEGRATING) 4 MG PO (15:32)
--- NOTE | 2024-02-04 16:14 | ED.GENMED ---
History of Present Illness
General
Chief Complaint: Skin Surface Trauma
Time Seen by Provider: 02/04/24 15:18
History of Present Illness
History of Present Illness:
73 yo male presents for evaluation of multiple lacerations to the right hand from a poultry trimmer. Lacs to the pinky finger, middle finger and thumb. Bleeding controlled w/ pressure, last tetanus <5 years. Not on thinners.
Past History
Past History
ED Past Medical History: CVA (Ischemic stroke 2016 with left-sided weakness), GERD, HTN, Hypercholesterolemia, Psychiatric (Generalized anxiety disorder/major depression), Other (Migraine with aura) and Other (kidney stone)
ED Past Surgical History: Orthopedic, Urological (Left nephrectomy, TURP) and Other (Hernia/eye surgery)
Social History
Tobacco: Former smoker
Alcohol: None
Drug: None
Personal:
Living: with family
Employment: Employed (contractor)
Family History
Family History: Other (Reviewed and noncontributory)
Review of Systems
Review of Systems
Allergies reviewed?: Yes
All Other Systems: ROS reviewed and negative except as documented in HPI and ROS
Phy Exam
Physical Exam
Physical Exam:
GEN: Well appearing, NAD, WDWN
HEENT: Oral mucosa moist, no scleral icterus
Cardiac: Regular rate
Lung: No respiratory distress, no tachypnea
MSK: 1.5cm macerated/ragged laceration to L 5th finger pad, no visible FB or tendon lac; 1.5cm lac to L 3rd digit volar DIP joint, no FB or tendon injury, significant epidermal loss. 1cm linear laceration to L thumb through nail plate into distal
digit, no FB
Skin: Good color, no pallor or jaundice, no rashes
Neuro: AO x3, moves all extremities freely
Psych: Calm, cooperative
Course
Orders/Labs/Results
Orders:
Orders
02/04/24 14:04
CR Hand - Right Min 3 Views Urgent
Comment:
Reason For Exam: laceration
02/04/24 15:31
Ondansetron Orally Disint [Zofran Odt (Orally Disintegrating)] 4 mg .ROUTE .STK-MED ONE
02/04/24 15:32
Ondansetron Orally Disint [Zofran Odt (Orally Disintegrating)] 4 mg PO NOW STA
02/04/24 16:16
Cephalexin Monohydrate [Keflex] 500 mg PO NOW STA
Vital Signs
Initial and Last Documented VS:
Initial Vital Signs
Temp Pulse Resp BP Pulse Ox
98.2 F 97 18 167/98 96
02/04/24 14:01 02/04/24 14:01 02/04/24 14:01 02/04/24 14:01 02/04/24 14:01
Last Documented Vital Signs
Temp Pulse Resp BP Pulse Ox
98.2 F 97 18 167/98 96
02/04/24 14:01 02/04/24 14:01 02/04/24 14:01 02/04/24 14:01 02/04/24 14:01
Procedures
Laceration Closure
Right Thumb:
Status of Wound: dirty
Size of Wound in cm: 1
Description of Wound Edges: sharp
Preparation: cleaned with saline
Anesthesia: 1% Lidocaine and Digital-Regional
Revision/Debridement: routine- no revision
Wound exploration: explored to base- no FB and no tendon involvement
Type of Closure: single layer closure
Skin Closure Material: 5-0 prolene
Number of sutures: 2
Right Fifth Finger:
Status of Wound: clean
Size of Wound in cm: 1.5
Description of Wound Edges: ragged and macerated
Preparation: cleaned with saline
Anesthesia: 1% Lidocaine and Digital-Regional
Wound exploration: explored to base- no FB and no tendon involvement
Type of Closure: single layer closure
Skin Closure Material: 5-0 prolene
Number of sutures: 6
MDM/Problems Addressed
MDM/Problems Addressed:
The fifth digit in particular is quite ragged, challenging to close fully, reapproximately and wrapped w/ pressure dressing. Surgifoam applied to R third digit due to persistent bleeding and no ability to close primarily. Will start abx due to open
fx of R thumb
*Critical Care Note
Total Time (30-74mins, 75-104mins- exclusive of procedures): Not Applicable
ED Attending Note
-
Portions of this chart may have been created with voice recognition software.� Occasional wrong word or��sound alike� substitutions may have occurred due to the inherent limitations of voice recognition software.
Discharge Plan
Departure
Patient Disposition: Home (Routine Discharge)
Date of Disposition: 02/04/24
Time of Disposition: 16:14
Patient with high blood pressure during this ER visit?: No
Discharge Problem:
Laceration of right little finger, Open fracture of distal phalanx of right thumb, Laceration of right middle finger
Instructions: Laceration Repair With Stitches (DC)
Prescriptions:
New
cephalexin 500 mg capsule
500 mg PO Q8H 7 Days Qty: 21 0RF
No Action
lansoprazole 30 MG capsule,delayed release(DR/EC)
30 mg PO BID
losartan 50 MG tablet
50 mg PO HS
atorvastatin 80 MG tablet
80 mg PO HS
venlafaxine [Effexor XR] 75 MG capsule,extended release 24hr
225 mg PO DAILY
albuterol sulfate 1 PUFF HFA aerosol inhaler
2 puff inhalation R Q4HPRN PRN (Reason: sob/wheezing)
cyclobenzaprine 10 mg Tablet
10 mg PO DAILYPRN PRN (Reason: muscle spasms)
melatonin 3 mg Tablet
9 mg PO HS
amlodipine 5 mg Tablet
5 mg PO HS
buspirone 15 mg Tablet
30 mg PO BID
aspirin 81 mg Tablet,Chewable
81 mg PO DAILY Qty: 30 0RF
cyanocobalamin (vitamin B-12) [Vitamin B-12] 1,000 mcg Tablet
1,000 mcg PO DAILY
oxycodone-acetaminophen 10-325 mg tablet
1 tab PO Q6HPRN PRN (Reason: moderate pain)
Patient Comments:
12/07/2023: last filled 11/21/23, 120 tabs for 30 days from [facility]
tadalafil 20 mg tablet
20 mg PO DAILYPRN PRN (Reason: ed)
clopidogrel 75 mg Tablet
75 mg PO DAILY 21 Days Qty: 21 0RF
Referrals:
Nusrat Medrano CRNP [Family Provider] -
Greg Valdovinos MD [Active] - Call in 1-3 days for appt
Activity Restrictions/Additional Instructions:
Keep wounds dry for 24 hours, then you may gently wash the hand
Change the bandages daily
Follow up with hand surgery this week for re-evaluation
Interventions
Interventions:
*Risk Screen - Suicide Last Done: 02/04/24 14:01
*General Assessment Last Done: 02/04/24 14:01
*Neglect/Abuse Screening Last Done: 02/04/24 14:01
ED- Fall Risk Assessment Last Done: 02/04/24 15:26
*ED COVID-19 Vaccine History Last Done: 02/04/24 16:12
*Nursing Disposition Last Done: 02/04/24 16:41
ED-Skin Assessment Last Done: 02/04/24 15:39
Discharge Date and Time
Print Language: URDU
[2024-02-04] MEDS: KEFLEX 500 MG PO (16:32)
[2024-02-04 16:41] VITALS: BP 166/96
== END 2024-02-04 16:44 | disposition home or self-care (01) ==
LOC: EMR 13:57
PROVIDERS: EMERGENCY PHYSICIAN Emergency Medicine; FAMILY PHYSICIAN Nurse Practitioner Adult Health
DX: S62.521B Displaced fracture of distal phalanx of right thumb, initial encounter for open fracture (principal); W29.3XXA Contact with powered garden and outdoor hand tools and machinery, initial encounter; Z87.891 Personal history of nicotine dependence
CPT/HCPCS: 99283; 12001; 73130

== ENCOUNTER → 2024-09-19 10:25 | Outpatient (REF) | payer MEDICARE, SELFPAY | LOC: HWRCS 10:25 | PROVIDERS: ATTENDING PHYSICIAN Student in an Organized Health Care Education/Training Program; FAMILY PHYSICIAN Nurse Practitioner Adult Health | DX: I35.0 Nonrheumatic aortic (valve) stenosis (principal) | CPT/HCPCS: 93306 ==

== ENCOUNTER → 2024-09-20 11:13 | Outpatient (REF) | payer MEDICARE, SELFPAY | LOC: RCS 11:13 | PROVIDERS: ATTENDING PHYSICIAN Student in an Organized Health Care Education/Training Program; FAMILY PHYSICIAN Nurse Practitioner Adult Health | DX: I25.10 Atherosclerotic heart disease of native coronary artery without angina pectoris (principal) | CPT/HCPCS: 78452; 93017; A9500; J2785 ==

== ENCOUNTER → 2024-09-25 10:47 | Outpatient (REF) | payer MEDICARE, SELFPAY | LOC: RAD 10:47 | PROVIDERS: ATTENDING PHYSICIAN Student in an Organized Health Care Education/Training Program; FAMILY PHYSICIAN Nurse Practitioner Adult Health | DX: M54.51 Vertebrogenic low back pain (principal) | CPT/HCPCS: 72110 ==